=== PATIENT | male | born 2000 | race Caucasian/White ===

== ENCOUNTER 2020-06-16 16:08 | Emergency (ER) | payer BC, SELFPAY ==
[2020-06-16 16:30] VITALS: BP 136/80; PULSE 87; RESP 16; TEMP 36.6; O2SAT 99; BMI 31.5
--- NOTE | 2020-06-16 16:41 | HMH.EDUTC ---
[facility] – [place] Disposition Clinical Impression: Close exposure to COVID-19 virus Disposition: Home, Self-Care Condition on Discharge: Good Instructions: DI for Nausea -- Adult, Preventing the Spread of Coronavirus Discharge Instructions Additional Instructions: *Monitor Temp, Over the counter Motrin or Tylenol as directed/as needed Tylenol every 4 hours and Motrin every 6 hours (as long as your family doctor has told you that you can take it) for fever or pain. and straight to ER if unable to lower temp less than 101.0 after medication given *Warm salt water gargles may help to soothe the throat *Throat Lozenges *Warm fluids like tea with honey may help to soothe the throat *Sleep elevated *Humidifier/Vaporizer Follow up IMMEDIATELY for new or worsening symptoms or no Noticeable improvement over the next 48-72 hours. 911 for difficulty breathing or swallowing You were tested for today for COVID19 your test result should be back in the next 24-48 hours, you may call to the [facility] to see if your test results are back in the next 48 hours [phone] [facility] hours are 9am-9pm You was given a handout with instructions for Self Quarantine and Self isolation for while you wait on test results and what to do if they are positive If you are positive the Health Dept will be contacting you also Prescriptions: Ondansetron [Zofran 4mg ODT] 4 mg PO TIDP PRN #6 tab PRN Reason: Nausea Prescription Printed Referrals: PCP,No [Primary Care Provider] - As needed Forms: Work/School Release Time of Disposition: 16:42 Medical Decision Making - Michael Inquiry Pt receiving controlled substance: No Michael was queried for this patient: No Vital Signs: 06/16/20 16:30 Temperature 97.8 F Temperature Source Oral Pulse Rate [Right] 87 Respiratory Rate 16 Blood Pressure [Right Arm] 136/80 Blood Pressure Mean [Right Arm] 98 Blood Pressure Source [Right Arm] Automatic Cuff Blood Pressure Position [Right Arm] Sitting 02 Sat by Pulse Oximetry 99 Oxygen Delivery Method Room Air Orders (Tests/Meds): ORDERS Category Date Time Status Covid-19 Nasal PCR Sendout [facility] 06/16/20 16:16 Ordered [facility] – [place] HPI - General Stated complaint: covid exposure Time Seen by Provider: 06/16/20 16:41 Mode of Arrival: Ambulatory Source of Information: Patient Limitations: No Limitations Description of Symptoms (Recalled from Triage Doc. by RN): pt was exposed to covid on saturday by a family member, c/o headache and nausea HEENT Symptoms (Recalled from RN notes): No Resp Symptoms (Recalled from RN notes): No Skin Symptoms (Recalled from RN notes): No MS Symptoms (Recalled from RN notes): No Functional Status (Recalled from RN notes): na - History of Present Illness Provider Complaint: Patient states that he was recently around several family members that tested positive for COVID State that he has been having body aches, headache and nausea States that he hasnt had a fever that he was aware of but wanted to get tested for COVID - Related Data Previous Rx's Medication Instructions Recorded Ondansetron [Zofran 4mg ODT] 4 mg PO TIDP PRN #6 tab 06/16/20 Allergies Allergy/AdvReac Type Severity Reaction Status Date / Time No Known Allergies Allergy Verified 03/03/19 16:22 - Worker's Comp Is this a Worker's Comp case?: No [facility] History - Hepatitis A Screen Drug use history?: No High risk sexual behaviors?: No History of sexually transmitted infection?: No Currently employed?: No Childcare worker?: No Do you have indoor plumbing?: Yes Do you have electricity?: Yes Attestation statement:: This patient has been screened for Hepatitis A risk factors. I have reviewed the patient's past medical history: Yes ROS Obtained: Yes All systems reviewed & no additional complaints, Yes Systems reviewed as appropriate & no additional complaints - Constitutional Constitutional: Reports system reviewed and no additional complaints, ex
[2020-06-16 16:44] VITALS: BP 132/74; PULSE 70; RESP 16; TEMP 36.9; O2SAT 98
--- NOTE | 2020-06-18 16:33 | PC.NURSE ---
LAB REPORTED POSITIVE COVID TEST. PATIENT NOTIFIED OF POSITIVE RESULTS AT THIS TIME
[2020-06-18 16:34] LABS: Covid-19 Nasal PCR Sendout Lex Positive
== END 2020-06-16 16:45 | disposition home or self-care (01) ==
PROVIDERS: Emergency Provider Nurse Practitioner
DX: U07.1 COVID-19 (principal)
CPT/HCPCS: 99201; U0004

== ENCOUNTER 2021-02-20 10:29 | Emergency (ER) | payer BC, SELFPAY ==
--- NOTE | 2021-02-20 12:43 | HMH.EDUTC ---
[facility] [place] Impression: Viral syndrome, Exposure to COVID-19 virus Disposition: Home, Self-Care Condition on Discharge: Good Instructions: DI for COVID-19 (Suspected or Confirmed ), Preventing the Spread of Coronavirus Discharge Instructions Additional Instructions: Drink plenty of fluids. Take tylenol for pain or fever. Return if you begin to have difficulty breathing. Follow up with your regular doctor. GO TO THE ER FOR ANY WORSENING SYMPTOMS Prescriptions: Ondansetron [Zofran 4mg ODT] 4 mg PO Q8HP PRN 12 Days #20 tab.rapdis PRN Reason: Nausea Transmission Status: Received by [facility] Referrals: Robert Tee MD [Primary Care Provider] - Forms: Work/School Release Time of Disposition: 12:59 Medical Decision Making - Medical Records Medical records reviewed: No: I reviewed the patient's medical records. - Michael Inquiry Pt receiving controlled substance: No Vital Signs: 02/20/21 12:50 02/20/21 13:28 Temperature 98.7 F 98.7 F Temperature Source Oral Pulse Rate 62 Pulse Rate [Left] 62 Respiratory Rate 16 16 Blood Pressure 111/67 Blood Pressure [Right Arm] 111/67 Blood Pressure Mean [Right Arm] 81 02 Sat by Pulse Oximetry 100 [facility] [place] - General Stated complaint: covid test Time Seen by Provider: 02/20/21 12:43 - History of Present Illness Provider Complaint: He states that for the past 2 days he has been feeling bad. He has been having a cough, sore throat and he has lost his sense of smell. He had covid last June (8-9 months ago) and he states that he feels just like he did then. He denies any shortness of breath, chest pain, or significant congestion. - Related Data Previous Rx's Medication Instructions Recorded Ondansetron [Zofran 4mg ODT] 4 mg PO TIDP PRN #6 tab 06/16/20 Ondansetron [Zofran 4mg ODT] 4 mg PO Q8HP PRN 12 Days #20 02/20/21 tab.rapdis Allergies Allergy/AdvReac Type Severity Reaction Status Date / Time No Known Allergies Allergy Verified 03/03/19 16:22 [facility] History - Hepatitis A Screen Attestation statement:: This patient has been screened for Hepatitis A risk factors. I have reviewed the patient's past medical history: Yes ROS Obtained: Yes All systems reviewed & no additional complaints - Constitutional Constitutional: Reports as per HPI - Eyes Eyes: Denies eye discharge - ENT Ears, Nose, Mouth, and Throat: Denies dizziness, Denies otalgia, Reports vertigo/dizziness - Cardiovascular Cardiovascular: Denies chest pain - Respiratory Respiratory: Denies chest congestion, Reports cough, Denies dyspnea, Denies stridor, Denies wheezing - Gastrointestinal Gastrointestingal: Reports: nausea. Denies: abdominal pain, diarrhea, vomiting Physical Exam - General General appearance: alert, in no apparent distress - Head Head exam: atraumatic, normocephalic, normal inspection - Eye Eye exam: Present: normal appearance, PERRL, EOMI - ENT ENT exam: Present: normal exam, normal oropharynx, mucous membranes moist, TM's normal bilaterally, normal external ear exam - Neck Neck exam: Present: normal inspection, full ROM, trachea midline. Absent: meningismus, lymphadenopathy - Chest Chest inspection: Present: normal inspection, symmetric chest wall rise. Absent: tenderness - Respiratory Respiratory exam: Present: normal lung sounds bilaterally. Absent: respiratory distress - Cardiovascular Cardiovascular exam: Present: regular rate, normal rhythm. Absent: JVD - Abdominal Exam Abdominal exam: Present: soft, normal bowel sounds. Absent: distention, tenderness, guarding - Extremities Exam Extremities exam: Present: normal inspection, full ROM, normal capillary refill. Absent: calf tenderness - Back Exam Back exam: Present: normal inspection. Absent: tenderness - Neurological Exam Neurological exam: Present: alert, oriented X3 - Psychiatric Psychiatr
[2021-02-20 12:50] VITALS: BP 111/67; PULSE 62; RESP 16; TEMP 37.1; O2SAT 100; BMI 32.3
[2021-02-20 13:28] VITALS: BP 111/67; PULSE 62; RESP 16; TEMP 37.1
== END 2021-02-20 13:28 | disposition home or self-care (01) ==
PROVIDERS: Emergency Provider Nurse Practitioner Family; PCP Emergency Medicine
DX: B34.9 Viral infection, unspecified (principal); J02.9 Acute pharyngitis, unspecified
CPT/HCPCS: 99202; G0463; U0003

== ENCOUNTER 2022-07-02 08:02 | Emergency (ER) | payer BC, SELFPAY ==
[2022-07-02 08:25] VITALS: BP 148/91; PULSE 117; RESP 20; TEMP 37; O2SAT 97; BMI 36.3
[2022-07-02 08:41] LABS: UTC Strep Screen (Rapid) Negative (Negative)
--- NOTE | 2022-07-02 09:01 | EXP.UTC ---
Discharge Plan Disposition Patient Disposition: Home, Self-Care Condition: Good Referrals Follow up/Referrals: Robert Tee MD [Primary Care Provider] - See instructions Activity Restrictions/Add. Instructions Additional Instructions/Restrictions: Make sure to take Amoxicillin as prescribed Follow up with your Family Doctor if no improvement or any woresning of symptoms Return if needed Straight to ER if any life threatening symptoms Clinical Impressions Clinical Impression: URI (upper respiratory infection) Qualifiers: URI type: unspecified URI Qualified Code(s): J06.9 - Acute upper respiratory infection, unspecified Instructions Patient Instructions: Sore Throat, DI for Ear Pain-Adult Discharge ED Provider: Mariana Cerna [facility] [place] HPI General Stated complaint: Sore throat,Vomiting Mode of Arrival: Ambulatory Source of Information: Patient Limitations: No Limitations Time Seen by Provider: 07/02/22 09:01 Description of Symptoms (Recalled from Triage Doc. by RN): PATIENT C/O SORE THROAT, HEADACHE, AND VOMITING. HE REPORTS HE WAS TREATED FOR STREP APPROX 2 WEEKS AGO WITH AMOXICILLIN, BUT HIS SORE THROAT HAS GOTTEN WORSE AND HE HAS SINCE DEVELOPED THE HEADACHE AND VOMITING HEENT Symptoms (Recalled from RN notes): Yes Resp Symptoms (Recalled from RN notes): No Skin Symptoms (Recalled from RN notes): No MS Symptoms (Recalled from RN notes): No Functional Status (Recalled from RN notes): WNL History of Present Illness Provider Complaint: Patient states that he was treated for strep throat about two weeks ago States that he was prescribed Amoxicillin but he isnt feeling much better States that he has still been having pain in his ear, throat, and head States that he doesnt think the amoxicillin is working so he had been alternating days of medication Related Data Allergies Allergy/AdvReac Type Severity Reaction Status Date / Time No Known Allergies Allergy Verified 06/16/21 17:29 Worker's Comp Is this a Worker's Comp case?: No [facility] Disclaimer: The information contained in this section may have been updated after the patient was seen, as this information can be updated by other users. Medical History (Updated 07/02/22 @ 09:08 by Mariana Cerna, [employer]OG[employer] REPAIRER) No significant past medical history Social History (Updated 07/02/22 @ 08:40 by Carmelita Joseph RN) Smoking Status: Never smoker alcohol intake: never current occupational status: employed Travel in the last 8 weeks: None ROS Obtained: Yes All systems reviewed & no additional complaints except as documented and Yes Systems reviewed as appropriate & no additional complaints except as documented Constitutional Constitutional: Reports system reviewed and no additional complaints, except as documented, Reports as per HPI, Reports fever(s) and Reports headache(s) ENT Ears, Nose, Mouth, and Throat: Reports system reviewed and no additional complaints, except as documented, Reports as per HPI, Reports otalgia, Reports headache(s) and Reports sore throat Cardiovascular Cardiovascular: Reports system reviewed and no additional complaints, except as documented and Reports as per HPI Respiratory Respiratory: Reports system reviewed and no additional complaints, except as documented and Reports as per HPI Neurologic Neurologic: Reports headache(s) Physical Exam General General appearance: alert and in no apparent distress Expanded ENT Exam TM/Canal exam: Left TM: erythema Throat exam: Present tonsillar erythema Respiratory Respiratory exam: Present normal lung sounds bilaterally; Absent respiratory distress or wheezes Cardiovascular Cardiovascular exam: Present regular rate, normal rhythm and normal heart sounds Neurological Exam Neurological exam: Present alert, oriented X3 and normal gait Medical Decision Making Michael Inquiry Pt receiving controlled substance: No Michael was queried for this patient: No Vital Signs: 07/02/22 08:25 [place]
[2022-07-02 09:12] VITALS: BP 148/91; PULSE 117; RESP 20; TEMP 37; O2SAT 97
[2022-07-02 09:21] LABS: UTC Influenza A Antigen Negative (Negative); UTC Influenza B Antigen Negative (Negative)
== END 2022-07-02 09:26 | disposition home or self-care (01) ==
PROVIDERS: Emergency Provider Nurse Practitioner; PCP Emergency Medicine
DX: J06.9 Acute upper respiratory infection, unspecified (principal)
CPT/HCPCS: 87804; 87880; 96372; 99212; G0463; J0696

== ENCOUNTER 2022-11-21 10:25 | Emergency (ER) | payer BC, SELFPAY ==
[2022-11-21 10:54] VITALS: BP 127/86; PULSE 82; RESP 16; TEMP 36.8; O2SAT 97; BMI 31.5
[2022-11-21 10:58] LABS: UTC Strep Screen (Rapid) Positive (Negative)
--- NOTE | 2022-11-21 11:07 | EXP.UTC ---
Discharge Plan Disposition Patient Disposition: Home, Self-Care Condition: Good Prescriptions Prescriptions: New amoxicillin [amoxicillin] 875 mg tablet 875 mg PO Q12H Qty: 20 0RF methylprednisolone 4 mg Tablets,Dose Pack 4 mg PO DIRECTED Qty: 21 0RF xrnvzoubknmfrxv-ejkjxgdrm-CP [Bromfed DM] 2-30-10 mg/5 mL Syrup 5 ml PO Q6H PRN (Reason: Cough) Qty: 240 0RF Referrals Follow up/Referrals: Provider,Referral, MD [Primary Care Provider] - See instructions Activity Restrictions/Add. Instructions Additional Instructions/Restrictions: Drink plenty of fluids. Take tylenol or ibuprofen for pain or fever. Take the medications as directed. Follow up with your regular doctor. GO TO THE ER FOR ANY WORSENING SYMPTOMS Throw your tooth brush away and get a new one. Clinical Impressions Clinical Impression: Strep throat Stand Alone Forms Stand Alone Forms: Work/School Release Instructions Patient Instructions: Strep Throat, DI for Strep Throat Discharge ED Provider: Bernardino Tinsley [facility] General Stated complaint: Persistant cough Mode of Arrival: Ambulatory Source of Information: Patient Limitations: No Limitations Time Seen by Provider: 11/21/22 11:06 Description of Symptoms (Recalled from Triage Doc. by RN): pt c/o a productive cough with yellow sputum x1 wk HEENT Symptoms (Recalled from RN notes): No Resp Symptoms (Recalled from RN notes): Yes Skin Symptoms (Recalled from RN notes): No MS Symptoms (Recalled from RN notes): No Functional Status (Recalled from RN notes): wnl History of Present Illness Provider Complaint: He states that for the past 1 week he has had sinus congestion and a sore throat. Related Data Previous Rx's Medication Instructions Recorded amoxicillin 875 mg tablet 875 mg PO Q12H #20 tabs 11/21/22 cqbennaaruhzzev-ghwcuxzzcobxdid-FP 5 ml PO Q6H PRN Cough #240 mL 11/21/22 2 mg-30 mg-10 mg/5 mL oral syrup (Bromfed DM) methylprednisolone 4 mg tablets in 4 mg PO DIRECTED #21 tabs 11/21/22 a dose pack Allergies Allergy/AdvReac Type Severity Reaction Status Date / Time No Known Allergies Allergy Verified 11/21/22 10:57 Worker's Comp Is this a Worker's Comp case?: No PFSH PFSH Disclaimer: The information contained in this section may have been updated after the patient was seen, as this information can be updated by other users. Medical History No significant past medical history Social History Smoking Status: Never smoker alcohol intake: never current occupational status: employed Travel in the last 8 weeks: None ROS Obtained: Yes All systems reviewed & no additional complaints except as documented Constitutional Constitutional: Reports chills and Reports fever(s) Eyes Eyes: Denies eye discharge ENT Ears, Nose, Mouth, and Throat: Reports as per HPI Cardiovascular Cardiovascular: Denies chest pain Respiratory Respiratory: Denies chest congestion and Reports cough Gastrointestinal Gastrointestingal: Reports nausea; Denies abdominal pain, constipation, cramping, diarrhea or vomiting Musculoskeletal Musculoskeletal: Denies arthralgias Integumentary/Breasts Skin/Breast: Denies rash Neurologic Neurologic: Denies paresthesias Physical Exam General General appearance: alert and in no apparent distress Head Head exam: atraumatic, normocephalic and normal inspection Eye Eye exam: Present normal appearance, PERRL and EOMI ENT ENT exam: Present mucous membranes moist and normal external ear exam Expanded ENT Exam TM/Canal exam: Bilateral TM: erythema and bulging Nose exam: Absent sinus tenderness Mouth exam: Present normal external inspection; Absent drooling Teeth exam: Present normal inspection Throat exam: Present tonsillar erythema, tonsillomegaly and tonsillar exudate Neck Neck exam: Present normal inspection, full ROM
[2022-11-21 11:20] VITALS: BP 127/86; PULSE 82; RESP 16; TEMP 36.8
== END 2022-11-21 11:31 | disposition home or self-care (01) ==
PROVIDERS: Emergency Provider Nurse Practitioner Family
DX: J02.0 Streptococcal pharyngitis (principal); R05.9 Cough, unspecified
CPT/HCPCS: 87880; 99212; 99214; G0463

== ENCOUNTER 2023-03-29 05:37 | Emergency (ER) | payer BC, SELFPAY ==
[2023-03-29 05:38] VITALS: BP 121/80; PULSE 68; RESP 20; TEMP 36.6; O2SAT 98; BMI 31.5
[2023-03-29 06:01] VITALS: BP 124/84; PULSE 78; RESP 20; TEMP 36.6; O2SAT 100
--- NOTE | 2023-03-29 06:04 | HMH.EDGENADL ---
Discharge Plan Disposition Patient Disposition: Home, Self-Care Condition: Good Prescriptions Prescriptions: No Action No Known Home Medications Referrals Follow up/Referrals: Provider,Referral, MD [Primary Care Provider] - See instructions Activity Restrictions/Add. Instructions Additional Instructions/Restrictions: Please follow-up with your primary care provider. Please return to the emergency department if you develop any new or worsening symptoms or become concerned for your health. Clinical Impressions Clinical Impression: Upper respiratory infection Stand Alone Forms Stand Alone Forms: Work/School Release Instructions Patient Instructions: DI for Acute Bronchitis Discharge ED Provider: Milton Valdes General Adult HPI General Chief complaint: Upper Respiratory Infection Stated complaint: sore throat Time Seen by Provider: 03/29/23 05:40 Mode of Arrival: Ambulatory Source of Information: Patient Limitations: No Limitations Description of Symptoms (Recalled from ER Triage Doc. by RN): Pt complains of head/sinus congestion and sore throat x 2 days. Denies any fever or cough History of Present Illness HPI narrative: 22-year-old male previously healthy presents with nasal congestion, postnasal drip, sore throat for the last 2 days. Denies fever. Reports cough, thinks that is secondary to postnasal drip. No significant shortness of breath. No known exposures. Related Data Home Medications Medication Instructions Recorded Confirmed No Known Home Medications 03/29/23 03/29/23 Allergies Allergy/AdvReac Type Severity Reaction Status Date / Time No Known Allergies Allergy Verified 11/21/22 10:57 [facility] Disclaimer: The information contained in this section may have been updated after the patient was seen, as this information can be updated by other users. Medical History No significant past medical history Social History Smoking Status: Never smoker alcohol intake: never current occupational status: employed Travel in the last 8 weeks: None ROS Obtained: Yes All systems reviewed & no additional complaints except as documented Physical Exam General General appearance: alert and in no apparent distress Head Head exam: atraumatic and normocephalic Eye Eye exam: Present normal appearance, PERRL and EOMI ENT ENT exam: Present other (Nasal congestion noted. No tonsillar erythema, swelling, or exudate. Cobblestoning and postnasal drip noted) Neck Neck exam: Present normal inspection and full ROM; Absent lymphadenopathy Chest Chest inspection: Present normal inspection and symmetric chest wall rise; Absent tenderness Respiratory Respiratory exam: Present normal lung sounds bilaterally; Absent respiratory distress Cardiovascular Cardiovascular exam: Present regular rate and normal rhythm Abdominal Exam Abdominal exam: Present soft; Absent distention, tenderness or guarding Extremities Exam Extremities exam: Present normal inspection; Absent edema or joint swelling Back Exam Back exam: Present normal inspection; Absent tenderness Neurological Exam Neurological exam: Present alert and oriented X3; Absent motor sensory deficit Psychiatric Psychiatric exam: Present normal affect and normal mood Skin Skin exam: Present warm, dry and normal color Lymphatic Lymphatic Findings: no adenopathy Medical Decision Making Medical Records Medical records reviewed: Yes I reviewed the patient's medical records. Michael Inquiry Pt receiving controlled substance: No Michael was queried for this patient: No Vital Signs: 03/29/23 05:38 03/29/23 06:01 Temperature 98 F 98 F Temperature Source Oral Oral Pulse Rate 78 Pulse Rate [Left] 68 Respiratory Rate 20 20 Blood Pressure 124/84 Blood Pressure [Right Arm] 121/80 Blood Pressure Mean [Right Arm] 93 Blood Pressu
== END 2023-03-29 06:05 | disposition home or self-care (01) ==
PROVIDERS: Emergency Provider Emergency Medicine
DX: J02.9 Acute pharyngitis, unspecified (principal); R09.81 Nasal congestion
CPT/HCPCS: 99282

== ENCOUNTER 2023-04-15 08:05 | Emergency (ER) | payer BC, SELFPAY ==
[2023-04-15 08:06] VITALS: BP 147/75; PULSE 69; RESP 18; TEMP 36.5; O2SAT 100; BMI 35.4
--- NOTE | 2023-04-15 08:18 | EXP.UTC ---
Discharge Plan Disposition Patient Disposition: Home, Self-Care Condition: Good Prescriptions Prescriptions: New methylprednisolone 4 mg Tablets,Dose Pack 4 mg PO DIRECTED Qty: 21 0RF azithromycin [Zithromax] 250 mg tablet 250 mg PO UD DOSE PK Qty: 6 0RF Rx Instructions: Take two (2) tablets today, then one (1) tablet days #2 thru #5 [id number]-mnppwlkyc-XF [Bromfed DM] 2-30-10 mg/5 mL Syrup 5 ml PO Q6H PRN (Reason: Cough) Qty: 240 0RF Referrals Follow up/Referrals: Provider,Referral, MD [Primary Care Provider] - See instructions Activity Restrictions/Add. Instructions Additional Instructions/Restrictions: Drink plenty of fluids. Take tylenol or ibuprofen for pain or fever. Take the medications as directed. Follow up with your regular doctor. GO TO THE ER FOR ANY WORSENING SYMPTOMS Clinical Impressions Clinical Impression: Pharyngitis, Otitis media Stand Alone Forms Stand Alone Forms: Work/School Release Instructions Patient Instructions: DI for Pharyngitis/Tonsillopharyngitis -- Adult, DI for Viral Syndrome Discharge ED Provider: Bernardino Tinsley [facility] General Stated complaint: Cough sore throat congestion Time Seen by Provider: 04/15/23 08:17 Related Data Previous Rx's Medication Instructions Recorded azithromycin 250 mg tablet 250 mg PO UD DOSE PK #6 tabs 04/15/23 (Zithromax) vapaupbwdlujujf-jxqenavyuxsfhxa-WM 5 ml PO Q6H PRN Cough #240 mL 04/15/23 2 mg-30 mg-10 mg/5 mL oral syrup (Bromfed DM) methylprednisolone 4 mg tablets in 4 mg PO DIRECTED #21 tabs 04/15/23 a dose pack Allergies Allergy/AdvReac Type Severity Reaction Status Date / Time No Known Allergies Allergy Verified 04/15/23 08:33 [facility] Disclaimer: The information contained in this section may have been updated after the patient was seen, as this information can be updated by other users. Medical History No significant past medical history Social History Smoking Status: Never smoker alcohol intake: never current occupational status: employed Travel in the last 8 weeks: None ROS Obtained: Yes All systems reviewed & no additional complaints except as documented Constitutional Constitutional: Reports chills and Reports fever(s) Eyes Eyes: Denies eye discharge ENT Ears, Nose, Mouth, and Throat: Reports as per HPI Cardiovascular Cardiovascular: Denies chest pain Respiratory Respiratory: Denies chest congestion and Reports cough Gastrointestinal Gastrointestingal: Reports nausea; Denies abdominal pain, constipation, cramping, diarrhea or vomiting Musculoskeletal Musculoskeletal: Denies arthralgias Integumentary/Breasts Skin/Breast: Denies rash Neurologic Neurologic: Denies paresthesias Physical Exam General General appearance: alert and in no apparent distress Head Head exam: atraumatic, normocephalic and normal inspection Eye Eye exam: Present normal appearance; Absent PERRL or EOMI ENT ENT exam: Present mucous membranes moist and normal external ear exam Expanded ENT Exam TM/Canal exam: Bilateral TM: erythema, bulging and effusion Nose exam: Absent sinus tenderness Nasal speculum exam: Bilateral: normal Mouth exam: Present normal external inspection and other; Absent drooling Teeth exam: Present normal inspection Throat exam: Present tonsillar erythema and tonsillomegaly Neck Neck exam: Present normal inspection, full ROM and trachea midline; Absent tenderness, meningismus or lymphadenopathy Chest Chest inspection: Present normal inspection and symmetric chest wall rise; Absent tenderness Respiratory Respiratory exam: Present normal lung sounds bilaterally; Absent respiratory distress, wheezes or stridor Cardiovascular Cardiovascular exam: Present regular rate, normal rhythm and normal heart sounds; Absent tachycardia or irregular rhythm Abdom
[2023-04-15 08:29] LABS: UTC Strep Screen (Rapid) Negative (Negative)
[2023-04-15 08:53] VITALS: BP 147/75; PULSE 69; RESP 18; TEMP 36.5; O2SAT 100
== END 2023-04-15 08:52 | disposition home or self-care (01) ==
PROVIDERS: Emergency Provider Nurse Practitioner Family
DX: J02.9 Acute pharyngitis, unspecified (principal); H66.90 Otitis media, unspecified, unspecified ear
CPT/HCPCS: 87635; 87880; 99212; 99214; G0463

== ENCOUNTER 2023-06-20 04:56 | Emergency (ER) | payer BC, SELFPAY ==
[2023-06-20 04:57] VITALS: BP 146/84; PULSE 58; RESP 18; TEMP 36.4; O2SAT 100; BMI 31.5
--- NOTE | 2023-06-20 05:03 | HMH.EDGENADL ---
Discharge Plan Disposition Patient Disposition: Home, Self-Care Condition: Good Chief Complaint: Upper Respiratory Infection Prescriptions Prescriptions: No Action No Known Home Medications Referrals Follow up/Referrals: Provider,Referral, MD [Primary Care Provider] - See instructions Clinical Impressions Clinical Impression: Viral syndrome Instructions Patient Instructions: DI for Viral Syndrome Discharge ED Provider: Randa Diaz General Adult HPI General Chief complaint: Upper Respiratory Infection Stated complaint: sore throat, cough Time Seen by Provider: 06/20/23 04:58 History of Present Illness HPI narrative: 22-year-old male with no significant past medical history coming into the ED with complaints of cough and sore throat. Patient notes that he woke up this morning with severe sore throat and productive cough. Patient denies any chest pain, shortness of breath, fevers, chills, body aches. Patient decided come into the ED prior to going to work to be tested for COVID, flu. Related Data Home Medications Medication Instructions Recorded Confirmed No Known Home Medications 06/20/23 06/20/23 Allergies Allergy/AdvReac Type Severity Reaction Status Date / Time No Known Allergies Allergy Verified 04/15/23 08:33 [facility] Disclaimer: The information contained in this section may have been updated after the patient was seen, as this information can be updated by other users. Medical History No significant past medical history Social History Smoking Status: Never smoker alcohol intake: never current occupational status: employed Travel in the last 8 weeks: None ROS Obtained: Yes All systems reviewed & no additional complaints except as documented Physical Exam General General appearance: alert and in no apparent distress Head Head exam: atraumatic, normocephalic and normal inspection Eye Eye exam: Present normal appearance, PERRL and EOMI; Absent scleral icterus or nystagmus ENT ENT exam: Present normal exam, mucous membranes moist and normal external ear exam Neck Neck exam: Present normal inspection, full ROM and trachea midline Chest Chest inspection: Present normal inspection and symmetric chest wall rise; Absent tenderness Respiratory Respiratory exam: Present normal lung sounds bilaterally; Absent respiratory distress, wheezes or accessory muscle use Cardiovascular Cardiovascular exam: Present regular rate, normal rhythm and normal heart sounds Abdominal Exam Abdominal exam: Present soft; Absent distention, tenderness, guarding, rebound, rigidity, trauma, ascites or pulsatile mass exam: Present deferred Extremities Exam Extremities exam: Present normal inspection and full ROM; Absent tenderness Back Exam Back exam: Present normal inspection and full ROM; Absent tenderness Neurological Exam Neurological exam: Present alert, oriented X3 and normal gait; Absent motor sensory deficit Psychiatric Psychiatric exam: Present normal affect and normal mood Skin Skin exam: Present warm, dry and normal color Medical Decision Making Medical Records Medical records reviewed: Yes I reviewed the patient's medical records. Michael Inquiry Pt receiving controlled substance: No Vital Signs: 06/20/23 04:57 Temperature 97.5 F L Temperature Source Oral Pulse Rate [Left] 58 L Respiratory Rate 18 Blood Pressure [Right Arm] 146/84 H Blood Pressure Mean [Right Arm] 104 Blood Pressure Source [Right Arm] Automatic Cuff Blood Pressure Position [Right Arm] Sitting 02 Sat by Pulse Oximetry 100 Oxygen Delivery Method Room Air Lab Data Lab results reviewed: Yes I reviewed the patient's lab results. Lab Results 06/20/23 05:01: SARS-CoV-2 (PCR) Not detected, Influenza A Untype (PCR) Not detected, Influenza Type B (PCR) Not detected, Group A Strep Rapid
[2023-06-20 05:14] LABS: Coronavirus 19, PCR Not Detected (NotDetected); Influenza A, PCR Not Detected (NotDetected); Influenza B, PCR Not Detected (NotDetected)
[2023-06-20 05:28] LABS: Strep Scrn Group A (Rapid) Negative (Negative)
[2023-06-20 05:52] VITALS: BP 144/87; PULSE 62; RESP 18; TEMP 36.4; O2SAT 100
== END 2023-06-20 05:54 | disposition home or self-care (01) ==
PROVIDERS: Emergency Provider Emergency Medicine
DX: J02.9 Acute pharyngitis, unspecified (principal); R05.9 Cough, unspecified; B34.9 Viral infection, unspecified
CPT/HCPCS: 87430; 87636; 99283

== ENCOUNTER 2023-12-21 20:05 | Emergency (ER) | payer BC, SELFPAY ==
[2023-12-21 20:06] VITALS: BP 144/86; PULSE 89; RESP 18; TEMP 36.7; O2SAT 99; BMI 32.3
[2023-12-21 20:15] VITALS: PULSE 89
--- NOTE | 2023-12-21 20:18 | XR_ITS ---
PROCEDURE INFORMATION: Exam: XR Chest Exam date and time: 12/21/2023 8:20 PM Age: 23 years old Clinical indication: Pain; Chest pressure; Additional info: Cp TECHNIQUE: Imaging protocol: Radiologic exam of the chest. Views: 1 view. COMPARISON: No relevant prior studies available. FINDINGS: Lungs: Unremarkable. No consolidation. Pleural spaces: Unremarkable. No pleural effusion. No pneumothorax. Heart/Mediastinum: Unremarkable. No cardiomegaly. Bones/joints: Unremarkable. IMPRESSION: No acute findings.
[2023-12-21 20:27] LABS: Basophils # 0.1 K/mm3 (0-0.2); Basophils % 1.1 % (0.1-2.0); Eosinophils # 0.2 K/mm3 (0.0-0.4); Eosinophils % 1.7 % (0.1-12.0); Hemoglobin 15.9 g/dL (14.1-18.0); Lymphocytes # 2.7 K/mm3 (0.7-4.5); Lymphocytes % 26.1 % (10-50); Mean Corpuscular HGB Conc 33.8 g/dL (31.8-35.4); Mean Corpuscular Hemoglobin 28.3 pg (27.0-31.2); Mean Corpuscular Volume 83.8 fl (80-94); Mean Platelet Volume 7.4 fl (7.4-10.4); Monocytes # 0.7 K/mm3 (0.1-1.0); Monocytes % 6.5 % (1.7-9.3); Neutrophils # 6.7 K/mm3 (1.8-7.8); Neutrophils % 64.7 % (37.0-80.0); Platelet Count 194 K/mm3 (142-424); Red Blood Count 5.61 M/mm3 (4.60-6.20); Red Cell Distribution Width 14.4 % (11.5-17.5); White Blood Count 10.4 K/mm3 (4.8-10.8)
[2023-12-21 20:28] LABS: Chloride 105 mmol/L (98-107); Sodium 141 mmol/L (136-145)
[2023-12-21 20:30] LABS: Blood Urea Nitrogen 18 mg/dl (9-20); Creatinine Clearance Estimated 181 mL/min (50-200); Estimated Glomerular Filt Rate 103 ml/min (>60); GFR (African American) 124 ML/MIN (>60)
[2023-12-21 20:31] LABS: Alanine Aminotransferase 34 U/L (12-78); Albumin Level 4.7 g/dl (3.5-5.0); Albumin/Globulin Ratio 1.4 (1.1-1.8); Alkaline Phosphatase 83 U/L (38-126); Aspartate Amino Transferase 38 U/L (17-59); Bilirubin,Total 0.7 mg/dl (0.2-1.3); Carbon Dioxide 27 mmol/L (22.0-30.0); Globulin 3.4 g/dL (1.3-3.2); Total Protein,Serum 8.1 g/dl (6.3-8.2)
[2023-12-21 20:32] LABS: Calcium 9.7 mg/dl (8.4-10.2); Glucose 108 mg/dl (74-100)
[2023-12-21] MEDS: ASPIRIN 81MG CHEWABLE TABLET 324 MG PO (20:37)
[2023-12-21] MEDS: BELLADONNA ALKALOIDS 60 ML ML PO (20:39)
[2023-12-21 20:41] VITALS: BP 138/85; PULSE 75; RESP 20; O2SAT 95
[2023-12-21 20:43] LABS: Troponin I < 0.01 ng/ml (0.00-0.034)
--- NOTE | 2023-12-21 21:16 | ED_ITS ---
Discharge Plan Disposition Patient Disposition: Home, Self-Care Prescriptions Prescriptions: New esomeprazole magnesium 20 mg capsule,delayed release(DR/EC) 20 mg PO DAILY 28 Days Qty: 28 0RF Referrals Follow up/Referrals: Merritt Navarro DO [Primary Care Provider] - See instructions Activity Restrictions/Add. Instructions Additional Instructions/Restrictions: Call your family doctor to establish care for this visit to the emergency department and schedule follow-up within 48 hours to ensure improvement. If you have any worsening of your condition or any other concerning signs or symptoms, return to the emergency department or your primary care doctor for further evaluation. Clinical Impressions Clinical Impression: Chest pain Discharge ED Provider: Fly Vega HPI General Chief Complaint: Chest Pain Stated Complaint: chest pain Time Seen by Provider: 12/21/23 20:18 Mode of Arrival: Ambulatory Source of Information: Patient Limitations: No Limitations Description of Symptoms (Recalled from ER Triage Doc. by RN): Pt presnts to ED for CP X 3 days. Pt has no cardiac history. Pt is A&O*4 at this time. History of Present Illness HPI narrative: Please note that above description of symptoms, in this electronic medical record under categorization of recalled from ER triage doctor by RN are reflective of an initial nursing assessment, however, is not reflective of my full history and physical exam that was personally taken and clarified. Consequentially, this preceding description of symptoms, which may include the patient's categorized chief complaint in the EMR, do not reflect my personal clinical impression, and the ultimate description of history of present illness and patient stated complaints should be deferred to this section of the note. Unless stated otherwise or congruent with this section of the note, additional signs, symptoms, or incongruence should be interpreted as inaccurate with my clinical impression. Related Data Previous Rx's Medication Instructions Recorded esomeprazole magnesium 20 mg 20 mg PO DAILY 28 days #28 caps 12/21/23 capsule,delayed release Allergies Allergy/AdvReac Type Severity Reaction Status Date / Time No Known Allergies Allergy Verified 04/15/23 08:33 [facility] Disclaimer: The information contained in this section may have been updated after the patient was seen, as this information can be updated by other users. Medical History No significant past medical history Social History Smoking Status: Current every day smoker alcohol intake: never current occupational status: employed Travel in the last 8 weeks: None ROS Obtained: Yes All systems reviewed & no additional complaints except as documented Physical Exam General General appearance: alert Neck Neck exam: Present trachea midline Chest Chest inspection: Present normal inspection and symmetric chest wall rise Respiratory Respiratory exam: Present normal lung sounds bilaterally; Absent respiratory distress, wheezes, stridor, accessory muscle use or prolonged expiratory phase Cardiovascular Cardiovascular exam: Present regular rate and normal rhythm Extremities Exam Extremities exam: Absent edema Neurological Exam Neurological exam: Present alert, oriented X3 and CN II-XII intact Skin Skin exam: Present warm and dry; Absent cyanosis, diaphoresis or pallor HEART Score HEART Score HEART Score assessment performed?: Yes HEART Score: 0 Critical Care Critical Care Time Critical Care Time: No Medical Decision Making Medical Records Medical records reviewed: Yes I reviewed the patient's medical records. Michael Inquiry Pt receiving controlled substance: No Michael was queried for this patient: No Vital Signs Vital Signs: 12/21/23 20:06 12/21/23 20:15 12/21/23 20:41 Temperature 98.1 F Temperature Source Oral Pulse Rate 89 75 Pulse Rate [Left] 89 Respiratory Rate 18 20 Blood Pressure 138/85 Blood Pressure [Right Arm] 144/86 H Blood Pressure Mean [Right Arm] 105 02 Sat by Pulse Oximetry 99 95 Oxygen Delivery Method Room Air Room Air Lab Data Labs: Lab Results 12/21/23 20:10: WBC 10.4, RBC 5.61, Hgb 15.9, Hct 47.0, MCV 83.8, MCH 28.3, MCHC 33.8, RDW 14.4, Plt Count 194, MPV 7.4, Neut % (Auto) 64.7, Lymph % (Auto) 26.1, Coal % (Auto) 6.5, Eos % (Auto) 1.7, Baso % (Auto) 1.1, Neut # (Auto) 6.7, Lymph # (Auto) 2.7, Coal # (Auto) 0.7, Eos # (Auto) 0.2, Baso # (Auto) 0.1, Sodium 141, Potassium 4.0, Chloride 105, Carbon Dioxide 27, Anion Gap 13.0, BUN 18, Creatinine 0.90, Estimated Creat Clear 181, Estimated GFR 103, Est GFR ( Amer) 124, Glucose 108 H, Calcium 9.7, Total Bilirubin 0.7, AST 38, ALT 34, Alkaline Phosphatase 83, Troponin I < 0.01, Total Protein 8.1, Albumin 4.7, G lobulin 3.4 H, Albumin/Globulin Ratio 1.4, Lipase 99 12/21/23 20:10 12/21/23 20:10 Response Orders (Tests/Meds): ED MEDICATIONS Discontinued Medications Generic Name Dose Route Start Last Admin Trade Name Willa PRN Reason Stop Dose Admin Aspirin 324 mg 12/21/23 20:18 12/21/23 20:37 Aspirin 81mg Chewable Tablet PO 12/21/23 20:19 324 mg ONCE ONE Administration Belladonna Alkaloids 60 ml 12/21/23 20:30 12/21/23 20:39 Belladonna Alkaloids 60 Ml Ml PO 12/21/23 20:31 60 ml ONCE ONE Administration ORDERS Category Date Time Status CXR --portable [XR chest portable] Stat Exams 12/21/23 20:18 Completed CBC w/Auto Diff [Complete Blood Count Auto Diff] Stat Lab 12/21/23 20:10 Completed CMP [Comprehensive Metabolic Panel] Stat Lab 12/21/23 20:10 Completed Lipase Stat Lab 12/21/23 20:10 Completed Trop I [Troponin I] Stat Lab 12/21/23 20:10 Completed Troponin I Q3H Lab 12/21/23 23:30 Ordered Troponin I Q3H Lab 12/22/23 02:30 Ordered MDM Narrative Medical Decision Narrative: 23-year-old male otherwise healthy here with chest pain. Patient states that chest pain has been going on and off throughout the day. 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 Substernal, does not radiate, moderate to severe in intensity of the point of tears. Patient states it has since eased off, but still present. Has never had anything like this in the past. Has not noticed anything that makes it better or worse. It is not positional, not exertional. No cough, fevers, chills, recent illness, nausea or vomiting, shortness of breath, syncope, or any other concerns. History was obtained via conversation with patient. On arrival, patient hemodynamically stable, alert, oriented x4, appropriate, GCS 15, moving all extremities spontaneously, pupils equal and reactive to light. Full physical exam performed and significant for very well-appearing 23-year-old in no apparent distress. Lungs are clear to auscultation anterior and posterior bilaterally. Pulses are equal and symmetric. Cardiac exam without murmurs, gallops, rubs, or extra cardiac sounds. Abdomen is soft, nontender, nondistended. Jerry sign negative, no overlying skin changes. Differential includes gastritis, pancreatitis, esophagitis, ACS, PUD, cholecystitis, hepatitis, aortic pathology, among others Patient was given GI cocktail., aspirin for symptomatic management and correction of underlying abnormalities. Workup independently interpreted and significant for nonactionable CBC or chemistry. Lipase negative, troponin negative. Chest x-ray without acute cardiopulmonary airspace disease. See radiology read for full review of final results. Independent interpretation of EKG shows sinus rhythm 76 beats a minute. SD 174, QRS 87, QTc 383. [place] normal. No ST or T wave changes concerning for acute ischemia.. Patient placed on continuous cardiac monitoring and continuous pulse ox with initial blood pressure 144/86, heart rate 89, saturation 99 on room air. Heart score 0. On reevaluation, patient still resting at baseline, pain is still there, but mild at this point. Given patient presentation, workup, history, this most likely represents esophagitis versus gastritis. Because patient at baseline without signs or symptoms of clinical decompensation, deemed appropriate for discharge. Results were relayed to patient who voiced understanding and were agreeable to outpatient management and follow up. I discussed my clinical impression with patient and answered all questions. At this time, the evidence for any other entities in the differential is insufficient to warrant any further testing or ED observation. This was explained as well. Advisory was given that persistent or worsening symptoms require further evaluation. I confirmed the understanding of this discussion. Erp Engineer disclaimer Much of this encounter note is an electronic addictions counselor assistant spoken language to printed text. Electronic addictions counselor assistant of the spoken language may permit errors. Although I have reviewed the note, some errors may still exist.
[2023-12-21 21:29] LABS: Lipase 99 U/L (23-300)
[2023-12-21 22:34] VITALS: BP 110/72; PULSE 70; RESP 16; TEMP 36.7
== END 2023-12-21 22:33 | disposition home or self-care (01) ==
PROVIDERS: Emergency Provider Emergency Medicine; PCP Internal Medicine
DX: R07.9 Chest pain, unspecified (principal); F17.210 Nicotine dependence, cigarettes, uncomplicated
CPT/HCPCS: 71045; 80053; 83690; 84484; 85025; 99284

== ENCOUNTER 2024-01-08 08:49 | Emergency (ER) | payer BC, SELFPAY ==
--- NOTE | 2024-01-08 08:57 | ED_ITS ---
Discharge Plan Disposition Patient Disposition: Home, Self-Care Condition: Good Prescriptions Prescriptions: New azithromycin 250 mg tablet See Rx Instructions .ROUTE .COMPLEX Qty: 6 0RF Rx Instructions: For 250 mg dose pack: take 500 mg today (day 1), then 250 mg for 4 days (days 2-5) methylprednisolone [Medrol (Venkata)] 4 mg tablets,dose pack See Rx Instructions .ROUTE .COMPLEX 6 Days Qty: 21 0RF Rx Instructions: 4 mg orally ;Medrol dose taper venkata No Action esomeprazole magnesium 20 mg capsule,delayed release(DR/EC) 20 mg PO DAILY 28 Days Qty: 28 0RF Referrals Follow up/Referrals: Merritt Navarro DO [Primary Care Provider] - See instructions Activity Restrictions/Add. Instructions Additional Instructions/Restrictions: Take medication as prescribed. Increase fluids and rest. If symptoms persist or worsen, follow up with PCP. Clinical Impressions Clinical Impression: Upper respiratory infection Qualifiers: URI type: unspecified URI Qualified Code(s): J06.9 - Acute upper respiratory infection, unspecified Instructions Patient Instructions: DI for Acute Bronchitis Discharge ED Provider: Delaney Patterson [facility] General Stated complaint: sore throat, cough Time Seen by Provider: 01/08/24 08:59 History of Present Illness Provider Complaint: Pt reports that he has had a cough for the last 3 weeks that has just gotten worse. He reports that he has coughed so much he has vomited. Pt states that yesterday he started having a runny nose and a sore throat. He has taken Bromfed, DayQuil and NyQuil for his symptoms. Related Data Previous Rx's Medication Instructions Recorded esomeprazole magnesium 20 mg 20 mg PO DAILY 28 days #28 caps 12/21/23 capsule,delayed release azithromycin 250 mg tablet See Rx Instructions PO .COMPLEX #6 01/08/24 tabs methylprednisolone 4 mg tablets in See Rx Instructions .Route 01/08/24 a dose pack (Medrol (Venkata)) .COMPLEX 6 days #21 tabs Allergies Allergy/AdvReac Type Severity Reaction Status Date / Time No Known Allergies Allergy Verified 01/08/24 09:06 [facility] Disclaimer: The information contained in this section may have been updated after the patient was seen, as this information can be updated by other users. Medical History No significant past medical history Social History Smoking Status: Current every day smoker alcohol intake: never current occupational status: employed Travel in the last 8 weeks: None ROS Obtained: Yes All systems reviewed & no additional complaints except as documented Constitutional Constitutional: Reports system reviewed and no additional complaints, except as documented and Reports malaise Eyes Eyes: Reports system reviewed and no additional complaints, except as documented ENT Ears, Nose, Mouth, and Throat: Reports system reviewed and no additional complaints, except as documented, Reports nasal discharge and Reports sore throat Cardiovascular Cardiovascular: Reports system reviewed and no additional complaints, except as documented Respiratory Respiratory: Reports system reviewed and no additional complaints, except as documented and Reports cough Gastrointestinal Gastrointestingal: Reports system reviewed and no additional complaints, except as documented and vomiting Genitourinary Male Genitourinary: Reports system reviewed and no additional complaints, except as documented Musculoskeletal Musculoskeletal: Reports system reviewed and no additional complaints, except as documented Integumentary/Breasts Skin/Breast: Reports system reviewed and no additional complaints, except as documented Neurologic Neurologic: Reports system reviewed and no additional complaints, except as documented Endocrine Endocrine: Reports system reviewed and no additional complaints, except as documented Hematologic/Lymphatic Henatologic/Lymphatic: Reports system reviewed and no additional complaints, except as documented Allergic/Immunologic Allergic/Immunologic: Reports system reviewed and no additional complaints, except as documented Physical Exam General General appearance: alert Comment: ill appearing Head Head exam: atraumatic and normocephalic Eye Eye exam: Present normal appearance Expanded ENT Exam External ear exam: Present normal external inspection Nose exam: Absent sinus tenderness Nasal speculum exam: Bilateral: other (clear drainage) Mouth exam: Present normal external inspection Teeth exam: Present normal inspection Throat exam: Present normal inspection Neck Neck exam: Present normal inspection; Absent lymphadenopathy Chest Chest inspection: Present normal inspection and symmetric chest wall rise Respiratory Respiratory exam: Present other (course sounds throughout.) Cardiovascular Cardiovascular exam: Present regular rate, normal rhythm and normal heart sounds Abdominal Exam Abdominal exam: Present soft and normal bowel sounds Extremities Exam Extremities exam: Present normal inspection Back Exam Back exam: Present normal inspection Neurological Exam Neurological exam: Present alert and oriented X3 Psychiatric Psychiatric exam: Present normal affect and normal mood Skin Skin exam: Present warm, dry and intact Lymphatic Lymphatic Findings: no adenopathy Medical Decision Making Michael Inquiry Pt receiving controlled substance: No Michael was queried for this patient: No Lab Data Lab results reviewed: Yes I reviewed the patient's lab results.
[2024-01-08 09:00] VITALS: BP 138/75; PULSE 53; RESP 18; TEMP 36.4; O2SAT 99; BMI 35.9
[2024-01-08 09:13] LABS: UTC Strep Screen (Rapid) Negative (Negative)
[2024-01-08 09:18] VITALS: BP 138/75; PULSE 53; RESP 18; TEMP 36.4; O2SAT 99
--- NOTE | 2024-01-10 13:12 | PC.NURSE ---
STREP CULTURE REVIEWED, NEGATIVE. NO CHANGE NEEDED.
== END 2024-01-08 09:18 | disposition home or self-care (01) ==
PROVIDERS: Emergency Provider Nurse Practitioner Family; PCP Internal Medicine
DX: J20.9 Acute bronchitis, unspecified (principal); J06.9 Acute upper respiratory infection, unspecified
CPT/HCPCS: 87880; 99212; 99214; G0463

== ENCOUNTER 2024-03-30 04:39 | Emergency (ER) | payer BC, SELFPAY ==
[2024-03-30 04:41] VITALS: BP 141/89; PULSE 80; RESP 16; TEMP 36.3; O2SAT 100; BMI 31.5
--- NOTE | 2024-03-30 04:47 | HMH.EDGENADL ---
Discharge Plan Disposition Patient Disposition: Home, Self-Care Prescriptions Prescriptions: New ondansetron HCl 4 mg tablet 4 mg PO Q8H PRN (Reason: nausea and vomiting) 5 Days Qty: 30 0RF No Action esomeprazole magnesium 20 mg capsule,delayed release(DR/EC) 20 mg PO DAILY 28 Days Qty: 28 0RF azithromycin 250 mg tablet See Rx Instructions .ROUTE .COMPLEX Qty: 6 0RF Rx Instructions: For 250 mg dose pack: take 500 mg today (day 1), then 250 mg for 4 days (days 2-5) methylprednisolone [Medrol (Venkata)] 4 mg tablets,dose pack See Rx Instructions .ROUTE .COMPLEX 6 Days Qty: 21 0RF Rx Instructions: 4 mg orally ;Medrol dose taper venkata Referrals Follow up/Referrals: Merritt Navarro DO [Primary Care Provider] - See instructions Activity Restrictions/Add. Instructions Additional Instructions/Restrictions: Please follow-up with your primary care provider. Please return to the emergency department if you develop any new or worsening symptoms or become concerned for your health. Clinical Impressions Clinical Impression: Diarrhea, Vomiting Print Language Print Language: Mongolian Discharge ED Provider: Milton Valdes General Adult HPI General Stated complaint: vomiting, diarrhea Time Seen by Provider: 03/30/24 04:43 History of Present Illness HPI narrative: 23-year-old male without any past medical history presents for a couple hours worth of nausea vomiting diarrhea. He reports 3 episodes of vomiting, reports repeated watery diarrhea. He reports no fever. Reports his child has been sick with similar symptoms. He went to work today and his boss told him to leave to get checked out. He denies any fever. He denies any blood in the stool, immunocompromise etc. He felt fine yesterday Related Data Previous Rx's ?Medication ?Instructions ?Recorded esomeprazole magnesium 20 mg 20 mg PO DAILY 28 days #28 caps 12/21/23 capsule,delayed release azithromycin 250 mg tablet See Rx Instructions PO .COMPLEX #6 01/08/24 tabs methylprednisolone 4 mg tablets in See Rx Instructions .Route 01/08/24 a dose pack (Medrol (Venkaat)) .COMPLEX 6 days #21 tabs ondansetron HCl 4 mg tablet 4 mg PO Q8H PRN nausea and 03/30/24 vomiting 5 days #30 tabs Allergies Allergy/AdvReac Type Severity Reaction Status Date / Time No Known Allergies Allergy Verified 01/08/24 09:06 [facility] Disclaimer: The information contained in this section may have been updated after the patient was seen, as this information can be updated by other users. Medical History No significant past medical history Social History Smoking Status: Current every day smoker alcohol intake: never current occupational status: employed Travel in the last 8 weeks: None ROS Obtained: Yes All systems reviewed & no additional complaints except as documented Physical Exam General General appearance: alert and in no apparent distress Head Head exam: atraumatic and normocephalic Eye Eye exam: Present normal appearance, PERRL and EOMI ENT ENT exam: Present normal oropharynx and normal external ear exam Neck Neck exam: Present normal inspection and full ROM Chest Chest inspection: Present normal inspection and symmetric chest wall rise; Absent tenderness Respiratory Respiratory exam: Present normal lung sounds bilaterally; Absent respiratory distress Cardiovascular Cardiovascular exam: Present regular rate and normal rhythm Abdominal Exam Abdominal exam: Present soft; Absent distention, tenderness or guarding Extremities Exam Extremities exam: Present normal inspection; Absent edema or joint swelling Back Exam Back exam: Present normal inspection; Absent tenderness Neurological Exam Neurological exam: Present alert and oriented X3; Absent motor sensory deficit Psychiatric Psychiatric exam: Present normal affect and normal mood Skin Skin exam: Present warm, dry and normal color Lymphatic Lymphatic Findings: no adenopathy Medical Decision Making Medical Records Medical records reviewed: Yes I reviewed the patient's medical records. Michael Inquiry Pt receiving controlled substance: No Michael was queried for this patient: No Lab Data Lab results reviewed: Yes I reviewed the patient's lab results. Orders (Tests/Meds): ED MEDICATIONS Generic Name Dose Route Start Last Admin Trade Name Freq PRN Reason Stop Dose Admin Ondansetron HCl 4 mg 03/30/24 04:48 Ondansetron 4mg/2ml Vial IV 03/30/24 04:49 ONCE ONE Medical Decision Narrative: 23-year-old male without significant past medical history presents for a few hours of nausea vomiting and diarrhea. He went to work and was told to leave to get checked out.. History was obtained via interactive discussion with patient. On arrival, patient is [afebrile, hemodynamically stable, satting appropriately, alert, oriented x4, GCS 15], moving all extremities spontaneously. Full physical exam performed and significant for no significant abdominal tenderness Differential includes but is not limited to gastroenteritis, food poisoning, colitis.. Patient was given Zofran for symptomatic management and correction of underlying abnormalities. Workup including blood work, stool studies, CT scan was considered, but deemed unnecessary due to history and physical exam, duration of symptoms. Given patient history, exam and workup, patient's presentation most likely represents gastroenteritis. These fines were communicated to patient he was discharged with prescription for Zofran and given specific return precautions.. Procedures Risk/Benefits of Procedure(s) Were Explained: Yes Critical Care Critical Care Time Critical Care Time: No
[2024-03-30] MEDS: ONDANSETRON 4MG ODT 4 MG SL (04:56)
[2024-03-30 05:09] VITALS: BP 141/89; PULSE 80; RESP 16; TEMP 36.3; O2SAT 100
--- NOTE | 2024-04-01 09:21 | PC.NURSE ---
pt called to see if he could have his work note extended by one day because he is still not feeling well.
== END 2024-03-30 05:10 | disposition home or self-care (01) ==
PROVIDERS: Emergency Provider Emergency Medicine; PCP Internal Medicine
DX: R11.2 Nausea with vomiting, unspecified (principal); R19.7 Diarrhea, unspecified
CPT/HCPCS: 99283; Q0162

== ENCOUNTER 2024-04-02 14:44 | Emergency (ER) | payer BC, SELFPAY ==
[2024-04-02 14:55] VITALS: BP 144/85; PULSE 84; RESP 16; TEMP 36.4; O2SAT 100; BMI 35.3
--- NOTE | 2024-04-02 15:06 | ED_ITS ---
Discharge Plan Disposition Patient Disposition: Home, Self-Care Condition: Good Prescriptions Prescriptions: No Action esomeprazole magnesium 20 mg capsule,delayed release(DR/EC) 20 mg PO DAILY 28 Days Qty: 28 0RF azithromycin 250 mg tablet See Rx Instructions .ROUTE .COMPLEX Qty: 6 0RF Rx Instructions: For 250 mg dose pack: take 500 mg today (day 1), then 250 mg for 4 days (days 2-5) methylprednisolone [Medrol (Venkata)] 4 mg tablets,dose pack See Rx Instructions .ROUTE .COMPLEX 6 Days Qty: 21 0RF Rx Instructions: 4 mg orally ;Medrol dose taper venkata ondansetron HCl 4 mg tablet 4 mg PO Q8H PRN (Reason: nausea and vomiting) 5 Days Qty: 30 0RF Referrals Follow up/Referrals: Provider,Referral, MD [Primary Care Provider] - See instructions Activity Restrictions/Add. Instructions Additional Instructions/Restrictions: Drink extra fluids with and between meals. If you have difficulty drinking, try very small amounts of water or suck on ice chips. ? Avoid fruit juices, as these do not replace minerals and can actually increase diarrhea. ? Children and adults can use sports drinks to replenish electrolytes. Younger children and infants should use products formulated for children, like oral rehydration solutions. ? Eat food in small amounts and let your stomach recover. ? Get lots of rest. You may feel tired or weak. ? No greasy or fried foods for the next 24-48 hours BRAT diet Bananas Rice Apples and Menard ? Make sure to drink plenty of liquids ? Return if needed ? Straight to ER if any life threatening symptoms ? You was given an outpatient order for diarrhea panel, please collect specimen and bring back to outpatient lab then call back to the [facility] or follow up with family doctor for results ? Follow up with family doctor in the next 48-72 hours if no improvement or any worsening of symptoms Continue taking Zofran as you was prescribed for Nausea and Vomiting Clinical Impressions Clinical Impression: Nausea vomiting and diarrhea Stand Alone Forms Stand Alone Forms: Work/School Release Instructions Patient Instructions: Diarrhea, Nausea and Vomiting-Adult Print Language Print Language: Mohawk Discharge ED Provider: Mariana Cerna [facility] General Stated complaint: vomitting, diarrhea Mode of Arrival: Ambulatory Source of Information: Patient Limitations: No Limitations Time Seen by Provider: 04/02/24 15:06 Description of Symptoms (Recalled from Triage Doc. by RN): pt c/o N/V/D. pt denies urinary symptoms or abd pain. pt was seen in the ED on 03/30 for the same symptoms and states he is feeling worse. HEENT Symptoms (Recalled from RN notes): No Resp Symptoms (Recalled from RN notes): No Skin Symptoms (Recalled from RN notes): No MS Symptoms (Recalled from RN notes): No Functional Status (Recalled from RN notes): wnl History of Present Illness Provider Complaint: Patient states that he was seen a couple days ago in the ED for N/V/D States he hasnt been able to work all week due to the N/V/D so today when he got up he was still having some diarrhea and not able to go to work so he came in to get checked again and get a work note Related Data Previous Rx's ?Medication ?Instructions ?Recorded esomeprazole magnesium 20 mg 20 mg PO DAILY 28 days #28 caps 12/21/23 capsule,delayed release azithromycin 250 mg tablet See Rx Instructions PO .COMPLEX #6 01/08/24 tabs methylprednisolone 4 mg tablets in See Rx Instructions .Route 01/08/24 a dose pack (Medrol (Venkata)) .COMPLEX 6 days #21 tabs ondansetron HCl 4 mg tablet 4 mg PO Q8H PRN nausea and 03/30/24 vomiting 5 days #30 tabs Allergies Allergy/AdvReac Type Severity Reaction Status Date / Time No Known Allergies Allergy Verified 01/08/24 09:06 Worker's Comp Is this a Worker's Comp case?: No [facility] Disclaimer: The information contained in this section may have been updated after the patient was seen, as this information can be updated by other users. Medical History No significant past medical history Social History Smoking Status: Never smoker alcohol intake: never current occupational status: employed Travel in the last 8 weeks: None ROS Obtained: Yes All systems reviewed & no additional complaints except as documented and Yes Systems reviewed as appropriate & no additional complaints except as documented Constitutional Constitutional: Reports system reviewed and no additional complaints, except as documented, Reports as per HPI, Denies body ache, Denies chills and Denies fever(s) ENT Ears, Nose, Mouth, and Throat: Reports system reviewed and no additional complaints, except as documented and Reports as per HPI Cardiovascular Cardiovascular: Reports system reviewed and no additional complaints, except as documented and Reports as per HPI Respiratory Respiratory: Reports system reviewed and no additional complaints, except as documented and Reports as per HPI Gastrointestinal Gastrointestingal: Reports system reviewed and no additional complaints, except as documented, as per HPI, diarrhea, nausea and vomiting; Denies abdominal pain Physical Exam General General appearance: alert and in no apparent distress ENT ENT exam: Present mucous membranes moist Respiratory Respiratory exam: Present normal lung sounds bilaterally; Absent respiratory distress or wheezes Cardiovascular Cardiovascular exam: Present regular rate, normal rhythm and normal heart sounds Abdominal Exam Abdominal exam: Present soft and normal bowel sounds; Absent distention, tenderness, guarding or rebound Neurological Exam Neurological exam: Present alert, oriented X3 and normal gait Medical Decision Making Medical Records Screening: Per USPSTF and CDC recommendations, given the prevalence of disease in our region, it is our hospital?s policy to screen for HIV and viral Hepatitis for all patients aged 18 and over and those with ongoing risk factors. Michael Inquiry Pt receiving controlled substance: No Michael was queried for this patient: No Vital Signs: 04/02/24 14:55 Temperature 97.6 F Temperature Source Oral Pulse Rate [Left] 84 Respiratory Rate 16 Blood Pressure [Right Arm] 144/85 H Blood Pressure Mean [Right Arm] 104 Blood Pressure Source [Right Arm] Automatic Cuff Blood Pressure Position [Right Arm] Sitting 02 Sat by Pulse Oximetry 100 Oxygen Delivery Method Room Air Medical Decision Narrative: Patient denies abdominal pain, states he still has been having some diarrhea and vomiting so he wasnt able to go to work today Will dc with Diarrhea panel and collection supplys and patient informed to bring it back to [facility] registration and Lab
[2024-04-02 15:21] VITALS: BP 144/85; PULSE 84; RESP 16; TEMP 36.4
== END 2024-04-02 15:27 | disposition home or self-care (01) ==
PROVIDERS: Emergency Provider Nurse Practitioner
DX: R11.2 Nausea with vomiting, unspecified (principal); R19.7 Diarrhea, unspecified
CPT/HCPCS: 99212; 99213; G0463

== ENCOUNTER 2024-06-16 07:59 | Emergency (ER) | payer BC, SELFPAY ==
[2024-06-16 08:11] VITALS: BP 139/80; PULSE 65; RESP 20; TEMP 37; O2SAT 96; BMI 36.0
--- NOTE | 2024-06-16 08:17 | EXP.UTC ---
Discharge Plan Disposition Patient Disposition: Home, Self-Care Condition: Good Prescriptions Prescriptions: New amoxicillin 875 mg tablet 875 mg PO BID Qty: 20 0RF No Action escitalopram oxalate [Lexapro] 10 mg tablet 10 mg PO DAILY Qty: 30 2RF Referrals Follow up/Referrals: Merritt Navarro DO [Primary Care Provider] - See instructions Activity Restrictions/Add. Instructions Additional Instructions/Restrictions: *Monitor Temp, Over the counter Motrin or Tylenol as directed/as needed Tylenol every 4 hours and Motrin every 6 hours (as long as your family doctor has told you that you can take it) for fever or pain. and straight to ER if unable to lower temp less than 101.0 after medication given *Warm salt water gargles may help to soothe the throat *Throat Lozenges? *Warm fluids like tea with honey may help to soothe the throat? *Sleep elevated *Humidifier/Vaporizer *Your throat swab was sent for culture. Those results are typically sent to your primary care. Be sure to follow up in 2-3 days with your family doctor/primary care physician if no improvement so they can review those result and treat if necessary. If you don?t have a primary care doctor, I recommend you get one but in the mean time, you will have to return to a walk in clinic Follow up IMMEDIATELY for new or worsening symptoms or no Noticeable improvement over the next 48-72 hours. 911 for difficulty breathing or swallowing Clinical Impressions Clinical Impression: Otitis media Stand Alone Forms Stand Alone Forms: Work/School Release Instructions Patient Instructions: Middle Ear Infection, Sore Throat Print Language Print Language: Croatian Discharge ED Provider: Mariana Cerna [facility] HPI General Stated complaint: sore throat ear pain Mode of Arrival: Ambulatory Source of Information: Patient Time Seen by Provider: 06/16/24 08:17 Description of Symptoms (Recalled from Triage Doc. by RN): SORE THROAT, DAUGHTER HAS STREP HEENT Symptoms (Recalled from RN notes): Yes Resp Symptoms (Recalled from RN notes): No Skin Symptoms (Recalled from RN notes): No MS Symptoms (Recalled from RN notes): No Functional Status (Recalled from RN notes): WNL History of Present Illness Provider Complaint: Patient states that his daughter has strep throat States that he has been having pain in his ears and this morning woke up with his throat sore and hurting so he came in to get checked worried he may have strep throat Related Data Previous Rx's ?Medication ?Instructions ?Recorded escitalopram oxalate 10 mg tablet 10 mg PO DAILY #30 tabs 04/03/24 (Lexapro) amoxicillin 875 mg tablet 875 mg PO BID #20 tabs 06/16/24 Allergies Allergy/AdvReac Type Severity Reaction Status Date / Time No Known Allergies Allergy Verified 04/03/24 14:49 Worker's Comp Is this a Worker's Comp case?: No [facility] Disclaimer: The information contained in this section may have been updated after the patient was seen, as this information can be updated by other users. Medical History (Updated 06/16/24 @ 08:23 by Mariana Cerna APRN) BMI 35.0-35.9,adult Depression Prehypertension Social History Smoking Status: Never smoker alcohol intake: never current occupational status: employed Travel in the last 8 weeks: None ROS Obtained: Yes All systems reviewed & no additional complaints except as documented and Yes Systems reviewed as appropriate & no additional complaints except as documented Constitutional Constitutional: Reports system reviewed and no additional complaints, except as documented and Reports as per HPI ENT Ears, Nose, Mouth, and Throat: Reports system reviewed and no additional complaints, except as documented, Reports as per HPI, Reports otalgia and Reports sore throat Cardiovascular Cardiovascular: Reports system reviewed and no additional complaints, except as documented and Reports as per HPI Respiratory Respiratory: Reports system reviewed and no additional complaints, except as documented and Reports as per HPI Gastrointestinal Gastrointestingal: Reports system reviewed and no additional complaints, except as documented and as per HPI Physical Exam General General appearance: alert and in no apparent distress ENT ENT exam: Present mucous membranes moist Expanded ENT Exam TM/Canal exam: Right TM: erythema and bulging Throat exam: Present tonsillar erythema Respiratory Respiratory exam: Present normal lung sounds bilaterally; Absent respiratory distress or wheezes Cardiovascular Cardiovascular exam: Present regular rate, normal rhythm and normal heart sounds Neurological Exam Neurological exam: Present alert, oriented X3 and normal gait Medical Decision Making Medical Records Screening: Per USPSTF and CDC recommendations, given the prevalence of disease in our region, it is our hospital?s policy to screen for HIV and viral Hepatitis for all patients aged 18 and over and those with ongoing risk factors. Michael Inquiry Pt receiving controlled substance: No Michael was queried for this patient: No Vital Signs: 06/16/24 08:11 Temperature 98.6 F Temperature Source Oral Pulse Rate [Left Radial] 65 Respiratory Rate 20 Blood Pressure [Left Arm] 139/80 Blood Pressure Mean [Left Arm] 99 02 Sat by Pulse Oximetry 96 Lab Data Lab results reviewed: Yes I reviewed the patient's lab results.
[2024-06-16 08:25] LABS: UTC Strep Screen (Rapid) Negative (Negative)
[2024-06-16 08:31] VITALS: BP 139/80; PULSE 65; RESP 20; TEMP 37
== END 2024-06-16 08:32 | disposition home or self-care (01) ==
PROVIDERS: Emergency Provider Nurse Practitioner; PCP Internal Medicine
DX: H66.93 Otitis media, unspecified, bilateral (principal); H92.03 Otalgia, bilateral; J02.9 Acute pharyngitis, unspecified
CPT/HCPCS: 87880; 99212; G0381

== ENCOUNTER 2024-10-21 11:16 | Emergency (ER) | payer MEDICAID, SELFPAY ==
[2024-10-21] VITALS (10 sets, daily range): BP systolic 101–150; BP diastolic 50–123; PULSE 67–90; RESP 17–20; TEMP 36.7–36.8; O2SAT 96–98; BMI 33.4; BMI 33.3
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
[2024-10-21 12:08] LABS: Activated Partial Thrombo Time 27.6 seconds (22.8-30.6); INR 0.91 (0.9-1.1); Prothrombin Time 10.3 seconds (10.1-12.5)
[2024-10-21 12:11] LABS: Albumin Level 4.8 g/dl (3.5-5.0); Chloride 105 mmol/L (98-107); Potassium 4.2 mmoL/L (3.5-5.1); Sodium 139 mmol/L (136-145)
[2024-10-21] MEDS: 0.9 % SODIUM CHLORIDE 50 ML VIAL IV (12:12)
[2024-10-21] MEDS: IOPAMIDOL-370 (76%);100ML BOTTLE 160 ML IV (12:12)
[2024-10-21] MEDS: SODIUM CHLORIDE 0.9% 10ML SYR (RAD ONLY) 10 ML IV (12:12)
[2024-10-21 12:13] LABS: Blood Urea Nitrogen 11 mg/dl (9-20); Creatinine Clearance Estimated 198 mL/min (50-200); Estimated Glomerular Filt Rate 117 ml/min (>60); GFR (African American) 141 ML/MIN (>60)
[2024-10-21 12:14] LABS: Alanine Aminotransferase 41 U/L (12-78); Albumin/Globulin Ratio 1.5 (1.1-1.8); Alkaline Phosphatase 70 U/L (38-126); Anion Gap 13.2 mEq/L (5-15); Aspartate Amino Transferase 42 U/L (17-59); Bilirubin,Total 1.1 mg/dl (0.2-1.3); Calcium 9.6 mg/dl (8.4-10.2); Carbon Dioxide 25 mmol/L (22.0-30.0); Globulin 3.2 g/dL (1.3-3.2); Glucose 109 mg/dl (74-100)
--- NOTE | 2024-10-21 12:14 | PC.NURSE ---
pt to CT
[2024-10-21] MEDS: ACETAMINOPHEN 1,000MG/100ML VIAL 1000 MG IV (12:21)
[2024-10-21] MEDS: KETOROLAC 30MG/ML VIAL 15 MG IV (12:21)
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
[2024-10-21 12:28] LABS: Basophils % 0.3 % (0.1-2.0); Eosinophils # 0.1 K/mm3 (0.0-0.4); Eosinophils % 0.9 % (0.1-12.0); Hematocrit 42.8 % (42.0-52.0); Hemoglobin 14.9 g/dL (14.1-18.0); Lymphocytes # 1.8 K/mm3 (0.7-4.5); Lymphocytes % 15.3 % (10-50); Mean Corpuscular HGB Conc 34.8 g/dL (31.8-35.4); Mean Corpuscular Hemoglobin 27.4 pg (27.0-31.2); Mean Corpuscular Volume 78.7 fl (80-94); Mean Platelet Volume 9.4 fl (7.4-10.4); Monocytes # 0.7 K/mm3 (0.1-1.0); Monocytes % 6.1 % (1.7-9.3); Neutrophils # 9.1 K/mm3 (1.8-7.8); Neutrophils % 77.1 % (37.0-80.0); Platelet Count 201 K/mm3 (142-424); Red Blood Count 5.44 M/mm3 (4.60-6.20); Red Cell Distribution Width 13.1 % (11.5-17.5); White Blood Count 11.7 K/mm3 (4.8-10.8)
== END 2024-10-21 14:42 | disposition home or self-care (01) ==
PROVIDERS: Emergency Provider Emergency Medicine; PCP Family Medicine
DX: S16.1XXA Strain of muscle, fascia and tendon at neck level, initial encounter (principal); R51.9 Headache, unspecified; M54.2 Cervicalgia; V89.2XXA Person injured in unspecified motor-vehicle accident, traffic, initial encounter
CPT/HCPCS: 70450; 70496; 70498; 71275; 72125; 72128; 72131; 72192; 74174; 80053; 85025; 85610; 85730; 96374; 96375; 99285; J0131; J1885; Q9967

== ENCOUNTER 2025-02-25 16:06 | Outpatient (CLI) | payer MEDICAID, SELFPAY ==
[2025-02-25 14:39] LABS: Influenza A, PCR Not Detected (NotDetected); Influenza B, PCR Not Detected (NotDetected)
[2025-02-25 20:17] LABS: Coronavirus 19, PCR Detected (NotDetected)
--- OUTSIDE RECORDS SUMMARY | 2025-03-01 16:08 | XMS_ITS | Clinical Summary ---
[facility] Address [address] [place] [address] Care Team Providers Care Internet Manager Name Role Phone Provider, No Known Primary Care Provider [phone] Allergies No known active allergies Medications albuterol sulfate HFA 108 (90 Base) MCG/ACT inhalerIndications: Bronchospasm Inhale 2 puffs Every 6 (Six) Hours As Needed for Wheezing. 18 g 2 Active ondansetron ODT (ZOFRAN-ODT) 4 MG disintegrating tabletIndications:N ausea and vomiting, unspecified vomiting type Place 1 tablet on the tongue Every 8 (Eight) Hours As Needed for Nausea or Vomiting. 8 tablet 3 Active Social History Tobacco Use Types Packs/Day Years Used Date Smoking Tobacco: Never Smokeless Tobacco: Former Chew Tobacco Cessation:Counseling Given: Not Answered Alcohol Use Standard Drinks/Week Comments Not Currently 0 (1 standard drink = 0.6 oz pur e alcohol) Abuse Screen Answer Date Recorded Unsafe at Home or Work/School Not on file Feels Threatened by Someone? Not on file Does Anyone Keep You from Co ntacting Others or Doint Things Outside the Home? Not on file 04/26/2023 Physical Sign of Abuse Present Not on file 1 Housing Stability Answer Date Recorded Current Living Arrangements Not on file 04/14 Potentially Unsafe Housing Conditions Not on jonathan e 04/26/2023 Family and Community Support Answer Ian e Recorded Help with Day-to-Day Activities Not on file 04/26/2023 Lonely or Isolated Not on file 04/26/2023 Employment Answer Date Recorded Do you want help finding or keeping work or a alec b? Not on file 04/26/2023 Disabilities Answer Date Recorded Concentrating, Remembering, or Making Decisions Difficulty Not on file 04/26/2023 Doing Errands Independently Difficulty Not on fi le 04/26/2023 Education Answer Date Recorded Help with school or training? Not on file Preferred Language Not on file 04/26/2023 Sex and Gender Information Value Date Recorded Sex Assigned at Not on file Legal Sex Male 11:16 PM EDT Gender Identity Not on file Sexual Orientation Not on file Last Filed Vital Signs Vital Sign Reading Time Taken Comments Blood Pressure 142/84 07/31/2022 10:38 AM EST Pulse 91 07/31/2022 10:38 AM EST Temperature 36.6 C (97.9 F) 07/31/2022 10:38 AM EST Respiratory Rate 14 07/31/2022 10:38 AM EST Oxygen Saturation 98% 07/31/2022 10:38 AM EST Inhaled Oxygen Concentration - - Weight 99.8 kg (220 lb) 07/31/2022 10:08 AM EST Height 177.8 cm (5' 10 ) 07/31/2022 10:08 AM EST Body Mass Index 31.57 07/31/2022 10:08 AM EST Plan of Treatment Health Maintenance Due Date Last Done Comments ANNUAL PHYSICAL 1998 HEPATITIS C SCREENING 1998 COVID-19 Vaccine (3 - 2023-2 5 season) 2024 04/06/2021, 03/16/2021 INFLUENZA VACCINE 04/14/2025 10/24/2021 TDAP/TD VACCINES (3 - Td or Tdap) 10/25/2031 10/24/2021, 02/22/2015 Pneumococcal Vaccine 0-49 Aged Out No longer eligible based on patient's age to complete this topic Insurance [employer] [place] [employer] Care Teams Internet Manager Relationship Specialty Start Date End Date Provider, [place] [address] PCP - General 05/11/21
== END 2025-02-25 23:59 ==
LOC: LAB.DROPOF 03-01 16:07
PROVIDERS: PCP Family Medicine; Visit Provider Family Medicine
DX: J02.9 Acute pharyngitis, unspecified (principal)
CPT/HCPCS: 87636